=== PATIENT | male | born 1940 ===

== ENCOUNTER 2016-10-29 08:19 | Emergency (ER) | payer MEDICARE, BC ==
[2016-10-29 08:49] VITALS: BP 141/82
--- NOTE | 2016-10-29 10:08 | UC ---
Throat Pain/Nasal Patrick HPI - HPI Summary HPI Summary: ONSET OF ST AND PAINFUL SWALLOWING LAST NIGHT. DOES NOT HAVE TONSILS. NO FEVER. HAS HAD RHINITIS ANS PND FOR THE PAST 2 DAYS. STARTED COUGHING TODAY. FEELS IT IS "MOVING INTO HIS CHEST". - History of Current Complaint Chief Complaint: UCRespiratory Stated Complaint: SORE THROAT Time Seen by Provider: 10/29/16 09:53 Hx Obtained From: Patient Onset/Duration: Gradual Onset, Lasting Days, Still Present Severity: Moderate Pain Intensity: 8 Pain Scale Used: 0-10 Numeric Cough: Nonproductive Associated Signs & Symptoms: Positive: Nasal Discharge. Negative: Dysphagia, Wheezing, Hoarseness, Sinus Discomfort, Fever - Allergies/Home Medications Allergies/Adverse Reactions: Allergies Allergy/AdvReac Type Severity Reaction Status Date / Time Aspirin AdvReac Intermediate See Comment Verified 03/14/13 14:05 Home Medications: Home Medications Ibuprofen [Ibuprofen 200 MG] 200 mg PO PRN 10/29/16 [History] PMH/Surg Hx/FS Hx/Imm Hx Endocrine History Of: Reports: Dyslipidemia Neurological History Of: Reports: Migraine - OCASSIONALLY - Surgical History Surgical History: Yes Surgery Procedure, Year, and Place: TONSILLECTOMYAS A CHILD. APPY- A CHILD. CYST REMOVED FROM BEHIND LEFT EAR [facility] [place]. VASECTOMY-. URETHRA CONSTRICTED-"GREEN LIGHT SURGERY" 2007 [facility]. CATARACT RIGHT EYE [facility] [place] 2011 - Family History Known Family History: Positive: Hypertension - Social History Alcohol Use: Daily Alcohol Amount: wine Substance Use Type: None Smoking Status (MU): Former Smoker Type: Cigarettes Length of Time of Smoking/Using Tobacco: approx 3-4 years while in college Review of Systems Constitutional: Negative ENT: Sore Throat, Nasal Discharge Respiratory: Cough Cardiovascular: Negative Gastrointestinal: Negative All Other Systems Reviewed And Are Negative: Yes Physical Exam Triage Information Reviewed: Yes Appearance: Well-Appearing, No Pain Distress, Well-Nourished Vital Signs: Initial Vital Signs Temp 97.1 F 10/29/16 08:42 Pulse 69 10/29/16 08:42 Resp 16 10/29/16 08:42 BP 141/82 10/29/16 08:42 Pulse Ox 99 10/29/16 08:42 Vital Signs Reviewed: Yes Eyes: Positive: Conjunctiva Clear ENT: Positive: Hearing grossly normal, Pharynx normal, Other: - TMS OBSTRUCTED BY CERUMEN Neck: Positive: Supple, Nontender, No Lymphadenopathy Respiratory Exam: Normal Cardiovascular Exam: Normal Abdomen Description: Positive: Soft Musculoskeletal: Positive: No Edema Neurological: Positive: Alert Psychological: Positive: Age Appropriate Behavior Skin: Negative: rashes Throat Pain/Nasal Course/Dx - Differential Dx/Diagnosis Provider Diagnoses: ACUTE PHARYNGITIS/URI Discharge - Discharge Plan Condition: Stable Disposition: HOME Prescriptions: Azithromycin [Azithromycin 500 MG TAB] 500 mg PO DAILY #5 tab guaiFENesin/CODIEN 100MG-10MG* [Robitussin AC 100Mg-10Mg*] 5 - 10 ml PO Q6H PRN #150 ml MDD 40ML PRN Reason: Cough Patient Education Materials: Pharyngitis (ED), Upper Respiratory Infection (ED) Referrals: Vineet Marcus MD [Primary Care Provider] - If Needed Additional Instructions: YOUR SYMPTOMS ARE LIKELY VIRALLY MEDIATED. WILL SEND IN RX FOR ANTIBIOTIC. IF YOU ARE NOT IMPROVING OVER THE NEXT 3-5 DAYS GO AHEAD AND FILL IT. REST, HYDRATE , OTC MEDS NEEDED.
== END 2016-10-29 10:22 | disposition home or self-care (01) ==
LOC: UCEAST 08:19
DX: J02.9 Acute pharyngitis, unspecified (principal); J06.9 Acute upper respiratory infection, unspecified
CPT/HCPCS: 99202; G0463

== ENCOUNTER 2016-12-04 10:40 | Emergency (ER) | payer MEDICARE, BC ==
[2016-12-04 10:54] VITALS: BP 138/78
--- NOTE | 2016-12-04 11:50 | UC ---
Epistaxis Nasal HPI - HPI Summary HPI Summary: 76 yo male had two nosebleeds in past 12 hours lasted over an hour (total) this has happened before when he took aspirain has been on aleve for a few days - History of Current Complaint Chief Complaint: UCGeneralIllness Stated Complaint: NOSE BLEED Time Seen by Provider: 12/04/16 11:38 Hx Obtained From: Patient Onset/Duration: Sudden Onset, Lasting Hours Timing: Constant Severity Initially: Moderate Severity Currently: None Pain Intensity: 0 Aggravating Factor(s): Nothing Alleviating Factor(s): Pressure, Ice Associated Signs And Symptoms: Positive: Negative Related Hx: NSAIDs - Allergies/Home Medications Allergies/Adverse Reactions: Allergies Allergy/AdvReac Type Severity Reaction Status Date / Time Naproxen [From Aleve] Allergy See Comment Verified 12/04/16 10:55 Aspirin AdvReac Intermediate See Comment Verified 12/04/16 10:55 Home Medications: Home Medications Naproxen [Naprosyn EC 375 MG TAB] 2 tab PO BID PRN 12/04/16 [History Confirmed 12/04/16] PMH/Surg Hx/FS Hx/Imm Hx Previously Healthy: Yes Endocrine History Of: Reports: Diabetes - diet controlled, Dyslipidemia Neurological History Of: Reports: Migraine - OCASSIONALLY - Surgical History Surgical History: Yes Surgery Procedure, Year, and Place: TONSILLECTOMYAS A CHILD. APPY- A CHILD. CYST REMOVED FROM BEHIND LEFT EAR [facility] [place]. VASECTOMY-. URETHRA CONSTRICTED-"GREEN LIGHT SURGERY" 2007 [facility]. CATARACT RIGHT EYE [facility] [place] 2011 - Family History Known Family History: Positive: Hypertension - Social History Alcohol Use: Daily Alcohol Amount: 2-3 glasses of wine Substance Use Type: None Smoking Status (MU): Former Smoker Type: Cigarettes Length of Time of Smoking/Using Tobacco: approx 3-4 years while in college Review of Systems Constitutional: Fatigue Skin: Negative Eyes: Negative ENT: Negative Respiratory: Negative Cardiovascular: Negative Gastrointestinal: Negative Genitourinary: Negative Motor: Negative Neurovascular: Negative Musculoskeletal: Negative Neurological: Negative Psychological: Negative All Other Systems Reviewed And Are Negative: Yes Physical Exam Triage Information Reviewed: Yes Appearance: Well-Appearing, No Pain Distress, Well-Nourished Vital Signs: Initial Vital Signs Temp 96.9 F 12/04/16 10:50 Pulse 73 12/04/16 10:50 Resp 18 12/04/16 10:50 BP 138/78 12/04/16 10:50 Pulse Ox 100 12/04/16 10:50 Vital Signs Reviewed: Yes Eyes: Positive: Conjunctiva Clear ENT: Positive: Hearing grossly normal, Pharynx normal, TMs normal. Negative: Nasal congestion, Nasal drainage, Tonsillar swelling, Tonsillar exudate, Trismus , Muffled/hoarse voice Neck: Positive: Supple, Nontender, No Lymphadenopathy Respiratory: Positive: Lungs clear, Normal breath sounds, No respiratory distress Cardiovascular: Positive: RRR, No Murmur Musculoskeletal: Positive: ROM Intact, No Edema Neurological: Positive: Alert Psychological Exam: Normal Skin Exam: Normal Epistaxis Nasal Course/Dx - Differential Dx/Diagnosis Provider Diagnoses: epistaxis Discharge - Discharge Plan Condition: Stable Disposition: HOME Patient Education Materials: Nosebleed (ED) Referrals: Vineet Marcus MD [Primary Care Provider] - If Needed Additional Instructions: a blood count is pending NASALCEASE available from [employer] -may help if you have a recurrence
[2016-12-04 15:21] LABS: Hematocrit 46 % (42-52); Mean Corpuscular HGB Conc 33 g/dl (31-36); Mean Corpuscular Hemoglobin 31 pg (27-31); Mean Corpuscular Volume 95 fL (80-94); Mean Platelet Volume 9 um3 (7.4-10.4); Red Blood Count 4.85 10^6/ul (4.0-5.4); Red Cell Distribution Width 13 % (10.5-15); White Blood Count 6.8 10^3/ul (3.5-10.8)
== END 2016-12-04 12:20 | disposition home or self-care (01) ==
LOC: UCEAST 10:40
DX: R04.0 Epistaxis (principal); E11.9 Type 2 diabetes mellitus without complications; G43.909 Migraine, unspecified, not intractable, without status migrainosus; Z87.891 Personal history of nicotine dependence; Z88.6 Allergy status to analgesic agent
CPT/HCPCS: 36415; 85025; 99211; G0463